=== PATIENT | female | born 1955 | race Caucasian/White ===

== ENCOUNTER 2016-09-28 08:39 | Emergency (ER) | payer MEDICARE, OTHER ==
[2016-09-28 10:23] LABS: HEMOGLOBIN 14.2 gm/dl (12.3-15.3); RED BLOOD COUNT 4.86 M/UL (4.00-5.10); WHITE BLOOD COUNT 7.7 K/UL (4.5-11.0)
[2016-09-28 10:46] LABS: BUN/CREATININE RATIO 18 (0-10)
== END 2016-09-28 11:45 | disposition home or self-care (01) ==
LOC: ER1 08:39
PROVIDERS: Physician Assistant
DX: N39.0 Urinary tract infection, site not specified (principal); R20.2 Paresthesia of skin; E11.9 Type 2 diabetes mellitus without complications; I10 Essential (primary) hypertension; E78.5 Hyperlipidemia, unspecified; F17.200 Nicotine dependence, unspecified, uncomplicated; Z79.82 Long term (current) use of aspirin; Z79.899 Other long term (current) drug therapy
CPT/HCPCS: 36415; 70450; 71010; 80053; 81001; 82550; 82553; 83874; 84443; 84484; 85025; 87077; 87086; 87186; 93005; 96374; 99284; J2405

== ENCOUNTER 2020-07-20 14:54 | Emergency (ER) | payer OTHER ==
[~2020-07-20 14:54] MED LIST: AMLODIPINE BESYL5 MG PO; ASPIRIN EC81 MG PO; ATORVASTATIN CA20 MG PO; BUPROPION XL150 MG PO; CLARITIN 10MG T10 MG PO; CRANBERRY500 M3 PO; FERROUS SULFAT325 M2 PO; JANUVIA 100 MG100 MG PO; LANTUS SOL100 UNIT/1 SQ; METOPROLOL SUCC50 MG PO; PROTONIX40 MG PO; PROVENTIL HFA6.7 GM INH; ZESTORETIC 20-1 EACH PO
[2020-07-20 16:14] LABS: HEMOGLOBIN 8.7 gm/dl (12.3-15.3); WHITE BLOOD COUNT 12.1 K/UL (4.5-11.0)
[2020-07-20 16:44] LABS: BUN/CREATININE RATIO 15 (0-10)
[2020-07-20] MEDS ORDERED: KEFLEX CAP 500500 MG PO (22:01)
[2020-07-20] MEDS ORDERED: OMNICEF 300 MG300 MG PO (22:30)
== END 2020-07-20 23:09 | disposition home or self-care (01) ==
LOC: ER1 14:54
PROVIDERS: Physician Assistant
DX: N39.0 Urinary tract infection, site not specified (principal); R41.82 Altered mental status, unspecified; J90 Pleural effusion, not elsewhere classified; G37.9 Demyelinating disease of central nervous system, unspecified; E11.9 Type 2 diabetes mellitus without complications; I10 Essential (primary) hypertension; Z87.891 Personal history of nicotine dependence
CPT/HCPCS: 70450; 71045; 72170; 80053; 81001; 82550; 82553; 83605; 83874; 84484; 85025; 87086; 93005; 96365; 99285; J0696